=== PATIENT | female | born 1950 | race Caucasian/White ===

== ENCOUNTER → 2018-04-25 | Outpatient (CLI) | payer MEDICARE, BC | END | disposition home or self-care (01) | LOC: CFH 09:21 | PROVIDERS: ATTEND Internal Medicine | DX: Z12.31 Encounter for screening mammogram for malignant neoplasm of breast (principal) | CPT/HCPCS: 77067 ==

== ENCOUNTER 2021-05-31 14:07 | Outpatient (CLI) | payer MEDICARE ==
[~2021-05-31 14:07] MED LIST: ASPI81TA50 PO; CALC-116 PO; CHOL2000 PO; CIPR500T87 PO; CITRACAL PO; DENO60DI SQ; HYDR25TA6 PO; METR500T PO; OXYC1TAB14 PO; POTA20TA14 PO; PROLIA PO; SIMV10TA18 PO
== END 2021-05-31 23:59 | disposition home or self-care (01) ==
LOC: CFH 14:07
PROVIDERS: ATTEND Nurse Practitioner Primary Care
DX: N64.4 Mastodynia (principal)
CPT/HCPCS: 76642; 77061; 77065; G0279